=== PATIENT | female | born 1930 | race African-American/Black ===

== ENCOUNTER 2017-01-17 13:08 | Inpatient (IN) | payer MEDICARE, MEDICAID ==
[~2017-01-17] VITALS: Ht 152.4 cm; Wt 88.0 kg
[~2017-01-17 13:08] MED LIST: ATOR10TA69 PO; BIMA2.5D4 EACHEYE; BRIM.2 BOTHEYE; BRIM5DRO EACHEYE; METO100T5 PO; NIFE30TA94 PO; SITA1TAB4 PO; TRAM50TA3 PO; WARF5TAB73 PO
[2017-01-17 13:30] VITALS: BP 116/77
[2017-01-17 13:37] VITALS: BP 116/77
[2017-01-17 14:00] VITALS: BP 116/77
[2017-01-17] MEDS ORDERED: ONDANSETRON HCL 4MG/2ML VIAL IV PRN (14:00)
[2017-01-17] MEDS ORDERED: HYDROMORPHONE HCL/PF 2MG/ML CPJ IV PRN (14:00)
[2017-01-17] MEDS ORDERED: LORAZEPAM 0.5MG TABLET PO PRN (14:00)
[2017-01-17] MEDS ORDERED: IPRATROPIUM/ALBUTEROL 0.5-3(2.5)MG/3ML NEB INH PRN (14:00)
[2017-01-17] MEDS ORDERED: CLONIDINE 0.1MG TABLET PO PRN (14:00)
[2017-01-17] MEDS ORDERED: PANTOPRAZOLE SODIUM 40 MG/VIAL IV SCH (14:00)
[2017-01-17] MEDS ORDERED: ACETAMINOPHEN 325MG TABLET PO PRN (14:00)
[2017-01-17 16:00] VITALS: BP 134/85
[2017-01-17] MEDS: BLOOD SUGAR DIAGNOSTIC STRIP TEST SCH ×2 (16:34→21:00)
[2017-01-17 16:40] LABS: CLARITY URINE CLEAR (CLEAR); COLOR URINE YELLOW (YELLOW); GLUCOSE URINE NEGATIVE (NEGATIVE); KETONES URINE NEGATIVE (NEGATIVE); LEUKOCYTE ESTERASE URINE 1+ (NEGATIVE); NITRITE URINE NEGATIVE (NEGATIVE); OCCULT BLOOD URINE NEGATIVE (NEGATIVE); PH URINE 5.5 (4.5-8.0); PROTEIN URINE NEGATIVE (NEGATIVE)
[2017-01-17 16:54] LABS: BASOPHILS % 1.5 % (0.0-2.0); DIFFERENTIAL COMMENT 0; EOSINOPHILS % 0.6 % (0.0-5.0); HEMATOCRIT. 22.2 % (36.0-48.0); LYMPHOCYTES % 30.3 % (20.0-50.0); MEAN CORPUSCULAR HEMOGLOBIN 24.8 pg (28.0-32.0); MEAN CORPUSCULAR HGB CONC 31.1 g/dL (31.0-37.0); MEAN PLATELET VOLUME 6.9 fl (7.4-10.4); MONOCYTES % 9.1 % (2.0-8.0); NEUTROPHILS % 58.5 % (40.0-76.0); PLATELET 318 x1000/uL (130-400); RED BLOOD CELL COUNT 2.77 mill/uL (4.2-5.4); WHITE BLOOD COUNT 4.6 x1000/uL (4.5-11.0)
[2017-01-17 16:56] LABS: HEMOGLOBIN. 6.9 g/dL (12.0-16.0)
[2017-01-17 17:03] LABS: CALCIUM 8.7 mg/dL (8.5-10.1)
[2017-01-17 17:09] LABS: ALBUMIN 2.7 g/dL (3.4-5.0); BILIRUBIN DIRECT 0.1 mg/dL (0.0-0.2)
[2017-01-17 17:19] LABS: BACTERIA URINE 2+; RBC URINE 0-2 /hpf (0-2); SQUAMOUS EPITHELIAL CELL URINE 1+ /lpf (RARE/1+)
[2017-01-17] MEDS ORDERED: SORBITOL 70% SOLN 30ML PO NR ×2 (18:00→22:00)
[2017-01-17] MEDS ORDERED: BISACODYL 5MG TABLET PO NR ×2 (18:00→22:00)
[2017-01-17 18:43] LABS: INR 1.4; PROTHROMBIN TIME 14.6 sec
[2017-01-17 20:00] VITALS: BP 130/75
[2017-01-17] MEDS ORDERED: ZOLPIDEM TARTRATE 5MG TABLET PO PRN (21:00)
[2017-01-17] MEDS: PANTOPRAZOLE SODIUM 40 MG/VIAL IV SCH (21:15)
[2017-01-18] VITALS (13 sets, daily range): BP systolic 111–152; BP diastolic 67–94
[2017-01-18] MEDS ORDERED: SORBITOL 70% SOLN 30ML PO NR (06:00)
[2017-01-18] MEDS: BLOOD SUGAR DIAGNOSTIC STRIP TEST SCH ×4 (07:20→21:00)
[2017-01-18] MEDS ORDERED: NA PHOS,M-B/NA PHOS,DI-BA ENEMA 118ML PR ONE (08:30)
[2017-01-18] MEDS: AMLODIPINE 5MG TABLET PO SCH (09:00)
[2017-01-18] MEDS: DOCUSATE SODIUM 250MG CAPSULE PO SCH (09:00)
[2017-01-18] MEDS: PANTOPRAZOLE SODIUM 40 MG/VIAL IV SCH ×2 (10:34→22:37)
[2017-01-18] MEDS ORDERED: DIATR MEGLU/DIATRIZOATE SOLN 30ML PO NR (10:45)
[2017-01-18] MEDS ORDERED: SODIUM CHLORIDE 0.9% 10ML VIAL ONE (10:56)
[2017-01-18] MEDS ORDERED: SIMETHICONE 40 MG/0.6 ML 30ML ONE (10:56)
[2017-01-18 11:57] LABS: BASOPHILS % 0.6 % (0.0-2.0); EOSINOPHILS % 0.3 % (0.0-5.0); HEMATOCRIT. 28.1 % (36.0-48.0); HEMOGLOBIN. 8.9 g/dL (12.0-16.0); MEAN CORPUSCULAR HEMOGLOBIN 25.9 pg (28.0-32.0); MEAN CORPUSCULAR HGB CONC 31.7 g/dL (31.0-37.0); MEAN CORPUSCULAR VOLUME 81.6 fL (81.0-99.0); MEAN PLATELET VOLUME 7.2 fl (7.4-10.4); MONOCYTES % 9.4 % (2.0-8.0); NEUTROPHILS % 65.7 % (40.0-76.0); PLATELET 257 x1000/uL (130-400); RED BLOOD CELL COUNT 3.45 mill/uL (4.2-5.4); RED CELL DISTRIBUTION WIDTH 17.4 % (11.6-14.6); WHITE BLOOD COUNT 4.6 x1000/uL (4.5-11.0)
[2017-01-18 12:03] LABS: INR 1.5; PROTHROMBIN TIME 15.9 sec
[2017-01-18] MEDS ORDERED: AMLODIPINE 5MG TABLET PO SCH (12:30)
[2017-01-18] MEDS ORDERED: DEXT 5%/0.45% NACL 1000ML 1,000 ML IV SCH (12:45)
[2017-01-18] MEDS: DEXT 5%/0.45% NACL 1000ML 1,000 ML IV SCH ×2 (12:54→22:38)
[2017-01-18] MEDS ORDERED: FENTANYL CITRATE/PF 50MCG/ML 2ML VIAL ONE (16:57)
[2017-01-18] MEDS ORDERED: MIDAZOLAM HCL 5 MG/5 ML VIAL ONE (16:57)
[2017-01-18] MEDS ORDERED: MIDAZOLAM HCL 5 MG/5 ML VIAL IV PRN (17:00)
[2017-01-19] VITALS: BP 153/76
[2017-01-19 04:00] VITALS: BP 121/76
[2017-01-19] MEDS: BLOOD SUGAR DIAGNOSTIC STRIP TEST SCH ×4 (07:26→21:04)
[2017-01-19] MEDS: PANTOPRAZOLE SODIUM 40 MG/VIAL IV SCH ×2 (08:03→21:04)
[2017-01-19] MEDS: DOCUSATE SODIUM 250MG CAPSULE PO SCH (08:03)
[2017-01-19] MEDS: DEXT 5%/0.45% NACL 1000ML 1,000 ML IV SCH ×2 (08:06→18:50)
[2017-01-19 08:08] LABS: BASOPHILS % 0.4 % (0.0-2.0); EOSINOPHILS % 0.5 % (0.0-5.0); HEMATOCRIT. 32.6 % (36.0-48.0); HEMOGLOBIN. 10.3 g/dL (12.0-16.0); LYMPHOCYTES % 18.4 % (20.0-50.0); MEAN CORPUSCULAR HEMOGLOBIN 25.5 pg (28.0-32.0); MEAN CORPUSCULAR HGB CONC 31.8 g/dL (31.0-37.0); MEAN CORPUSCULAR VOLUME 80.4 fL (81.0-99.0); MEAN PLATELET VOLUME 7.2 fl (7.4-10.4); MONOCYTES % 6.5 % (2.0-8.0); NEUTROPHILS % 74.2 % (40.0-76.0); PLATELET 296 x1000/uL (130-400); RED BLOOD CELL COUNT 4.05 mill/uL (4.2-5.4); RED CELL DISTRIBUTION WIDTH 17.3 % (11.6-14.6); WHITE BLOOD COUNT 5.3 x1000/uL (4.5-11.0)
[2017-01-19 08:15] LABS: CALCIUM 9.1 mg/dL (8.5-10.1)
[2017-01-19] MEDS ORDERED: HYDRALAZINE 10 MG in SODIUM CHLORIDE 0.9% 50 ML IV PRN (08:30)
[2017-01-19] MEDS ORDERED: ENOXAPARIN 40MG/0.4ML SYR SUBCUT NR (08:30)
[2017-01-19] MEDS ORDERED: ASPIRIN 81MG EC TABLET PO NR (08:30)
[2017-01-19] MEDS ORDERED: CYANOCOBALAMIN 1000MCG/ML VIAL IM NR (08:30)
[2017-01-19] MEDS ORDERED: HYDRALAZINE 20MG/ML VIAL IV PRN ×2 (08:30→16:00)
[2017-01-19] MEDS ORDERED: MECLIZINE 25MG TABLET PO PRN (08:30)
[2017-01-19] MEDS ORDERED: HYDRALAZINE 20MG/ML VIAL IV ONE (08:30)
[2017-01-19] MEDS: ONDANSETRON HCL 4MG/2ML VIAL IV SCH ×3 (09:19→21:04)
[2017-01-19] MEDS ORDERED: HYDRALAZINE 5 MG in SODIUM CHLORIDE 0.9% 50 ML IV NR (10:00)
[2017-01-19] MEDS ORDERED: FOLIC ACID 1 MG, THIAMINE HCL 100 MG, MVI, ADULT NO.1 10 ML in DEXTROSE 5% WATER 1,000 ML IV ONE ×4 (10:30)
[2017-01-19] MEDS: METOCLOPRAMIDE HCL 10MG/2ML VIAL IV SCH ×2 (12:00→18:00)
[2017-01-19 14:43] LABS: BG BASE EXCESS -0.9 mmol/L (-2.0-2.0); BG CARBOXYHEMOGLOBIN 0.1 % (0.5-1.5); BG DEOXYHEMOGLOBIN 2.9 % (0.0-5.0); BG FRACTION INSPIRED OXYGEN 28; BG HCO3 ACT 23.4 mmol/L (22.0-26.0); BG METHEMOGLOBIN 0.2 % (0.0-1.5); BG OXYGEN SATURATION 97.1 % (92.0-98.5); BG OXYHEMOGLOBIN 96.8 % (94.0-97.0); BG PH 7.419 (7.350-7.450); BG PO2 95.2 mmHg (75.0-100.0); BG SAMPLE SITE LEFT BRACHIAL; BG TOTAL HEMOGLOBIN 9.5 g/dL (12.0-18.0); BG VENT MODE NASAL CANNULA
[2017-01-19 16:00] VITALS: BP 144/88
[2017-01-19] MEDS: FERROUS SULFATE 325MG TABLET PO SCH ×2 (16:28→19:28)
[2017-01-19] MEDS ORDERED: WARFARIN SODIUM 5MG TABLET PO SCH (18:00)
[2017-01-19 18:32] LABS: AMMONIA 30 uMol/L (<32); INDEX HEMOLYSI 2 (1-3)
[2017-01-19 18:42] LABS: T4 FREE 1.33 ng/dL (0.76-1.46)
[2017-01-19 18:43] LABS: INDEX HEMOLYSI 1 (1-3)
[2017-01-19 18:44] LABS: T3 FREE 1.76 pg/ml (2.18-3.98); THYROID STIMULATING HORMONE 1.1 uIU/mL (0.36-3.74)
[2017-01-19 19:04] LABS: VITAMIN B12 SERUM > 2000 pg/mL (211-911)
[2017-01-19 20:00] VITALS: BP 138/93
[2017-01-20] VITALS: BP 129/94
[2017-01-20] MEDS: METOCLOPRAMIDE HCL 10MG/2ML VIAL IV SCH ×2 (00:30→06:00)
[2017-01-20] MEDS: ONDANSETRON HCL 4MG/2ML VIAL IV SCH ×2 (03:04→09:00)
[2017-01-20 04:00] VITALS: BP 124/77
[2017-01-20] MEDS: DEXT 5%/0.45% NACL 1000ML 1,000 ML IV SCH (04:28)
[2017-01-20] MEDS: BLOOD SUGAR DIAGNOSTIC STRIP TEST SCH (06:35)
[2017-01-20] MEDS: IPRATROPIUM/ALBUTEROL 0.5-3(2.5)MG/3ML NEB HHN SCH ×2 (07:41→11:30)
[2017-01-20 08:00] VITALS: BP 124/96
[2017-01-20 08:21] LABS: BG BASE EXCESS 0.7 mmol/L (-2.0-2.0); BG CARBOXYHEMOGLOBIN 0.3 % (0.5-1.5); BG DEOXYHEMOGLOBIN 3.1 % (0.0-5.0); BG FRACTION INSPIRED OXYGEN 21; BG HCO3 ACT 24.1 mmol/L (22.0-26.0); BG METHEMOGLOBIN 0.3 % (0.0-1.5); BG OXYGEN SATURATION 96.9 % (92.0-98.5); BG OXYHEMOGLOBIN 96.3 % (94.0-97.0); BG PCO2 33.7 mmHg (35.0-45.0); BG PH 7.472 (7.350-7.450); BG PO2 85.8 mmHg (75.0-100.0); BG SAMPLE SITE RIGHT BRACHIAL; BG TOTAL HEMOGLOBIN 9.6 g/dL (12.0-18.0); BG VENT MODE ROOM AIR
[2017-01-20 08:37] LABS: BASOPHILS % 0.5 % (0.0-2.0); EOSINOPHILS % 0.6 % (0.0-5.0); HEMATOCRIT. 29.6 % (36.0-48.0); HEMOGLOBIN. 9.2 g/dL (12.0-16.0); LYMPHOCYTES % 26.8 % (20.0-50.0); MEAN CORPUSCULAR HEMOGLOBIN 25.3 pg (28.0-32.0); MEAN CORPUSCULAR HGB CONC 31.1 g/dL (31.0-37.0); MEAN CORPUSCULAR VOLUME 81.4 fL (81.0-99.0); MEAN PLATELET VOLUME 6.8 fl (7.4-10.4); NEUTROPHILS % 63.1 % (40.0-76.0); PLATELET 254 x1000/uL (130-400); RED BLOOD CELL COUNT 3.64 mill/uL (4.2-5.4); RED CELL DISTRIBUTION WIDTH 17.5 % (11.6-14.6)
[2017-01-20 08:44] LABS: INR 1.4; PROTHROMBIN TIME 14.4 sec
[2017-01-20 08:54] LABS: CALCIUM 8.9 mg/dL (8.5-10.1)
[2017-01-20] MEDS: PANTOPRAZOLE SODIUM 40 MG/VIAL IV SCH (08:59)
[2017-01-20] MEDS: AMLODIPINE 5MG TABLET PO SCH (09:00)
[2017-01-20] MEDS: DOCUSATE SODIUM 250MG CAPSULE PO SCH (09:00)
[2017-01-20] MEDS: FERROUS SULFATE 325MG TABLET PO SCH (09:00)
== END 2017-01-20 13:03 | disposition home or self-care (01) | DRG 811 ==
LOC: OBSVTOIN 13:08 → INTOOBSV 13:08 → 6EST 13:08 → 6WST 01-19 10:36
PROVIDERS: ADMIT Internal Medicine Geriatric Medicine; ATTEND Internal Medicine Geriatric Medicine
PROC: 02HV33Z Insertion of Infusion Device into Superior Vena Cava, Percutaneous Approach (ICD-10-PCS; 2017-01-17)
PROC: B5181ZA Fluoroscopy of Superior Vena Cava using Low Osmolar Contrast, Guidance (ICD-10-PCS; 2017-01-17)
PROC: B548ZZA Ultrasonography of Superior Vena Cava, Guidance (ICD-10-PCS; 2017-01-17)
PROC: 30233N1 Transfusion of Nonautologous Red Blood Cells into Peripheral Vein, Percutaneous Approach (ICD-10-PCS; 2017-01-17)
PROC: 0DJD8ZZ Inspection of Lower Intestinal Tract, Via Natural or Artificial Opening Endoscopic (ICD-10-PCS; 2017-01-18)
PROC: 0DB68ZX Excision of Stomach, Via Natural or Artificial Opening Endoscopic, Diagnostic (ICD-10-PCS; principal; 2017-01-18 15:00)
DX: D50.9 Iron deficiency anemia, unspecified (principal); G92 Toxic encephalopathy; I69.354 Hemiplegia and hemiparesis following cerebral infarction affecting left non-dominant side; E44.1 Mild protein-calorie malnutrition; K29.60 Other gastritis without bleeding; I65.29 Occlusion and stenosis of unspecified carotid artery; K44.9 Diaphragmatic hernia without obstruction or gangrene; I10 Essential (primary) hypertension; E11.9 Type 2 diabetes mellitus without complications; E66.01 Morbid (severe) obesity due to excess calories; G90.8 Other disorders of autonomic nervous system; K22.2 Esophageal obstruction; K76.89 Other specified diseases of liver; R00.0 Tachycardia, unspecified; M19.90 Unspecified osteoarthritis, unspecified site; Z60.2 Problems related to living alone; Z79.01 Long term (current) use of anticoagulants; Z90.49 Acquired absence of other specified parts of digestive tract; Z68.37 Body mass index [BMI] 37.0-37.9, adult; Z88.5 Allergy status to narcotic agent; Z88.8 Allergy status to other drugs, medicaments and biological substances
CPT/HCPCS: 36415; 36569; 36600; 70450; 70551; 71010; 74176; 76937; 77001; 80048; 80076; 81001; 82140; 82270; 82375; 82607; 82746; 82805; 82962; 83036; 83540; 83550; 84439; 84443; 84481; 85025; 85610; 85730; 86850; 86870; 86900; 86904; 86920; 87086; 88305; 88312; 88313; 93880; 94640; 97116; 97162; 97535; A4216; C1725; C9113; J0360; J1170; J1650; J2250; J2405; J2765; J3010; J3411; J3420; J3490; J7030; J7040; J7050; J7070; J7620; P9016; Q9963